=== PATIENT | female | born 1955 | race Caucasian/White ===

== ENCOUNTER 2018-03-16 15:23 | Emergency (ER) | payer MEDICARE ==
[2018-03-16 15:55] LABS: Bilirubin Negative (Negative); Blood, Urine Small (Negative); Clarity Slightly Cloudy (Clear); Glucose, Urine (Dipstick) Negative (Negative); Leukocyte Large (Negative); Nitrite Negative (Negative); Protein, Urine (Dipstick) Trace mg/dL (Neg-Trace); Specific Gravity, Urine 1.015 (1.005-1.030); Urobilinogen 0.2 mg/dL (0.2-1.0)
[2018-03-16] MEDS ORDERED: Ketorolac Tromethamine 30 MG/ML VIAL ONE (15:55)
[2018-03-16 15:57] LABS: Bacteria/HPF 1+ HPF (None Seen); Squamous Epithelial 0-3 HPF (0-3); WBC/HPF 21-50 HPF (0-3)
[2018-03-16] MEDS ORDERED: cefTRIAXone\\ROCEPHIN 2 GM VIAL ONE (15:59)
--- NOTE | 2018-03-16 16:31 | CT ---
CT ABDOMEN AND PELVIS WITHOUT CONTRAST STONE PROTOCOL 03/16/18 HISTORY: Two days of lower abdominal pain. COMPARISON: CT from 2004. FINDINGS: Mild scarring in the lung bases. There is cholelithiasis without evidence of cholecystitis. Numerous phleboliths in the pelvis. Punctate calculus inferior pole left kidney. Punctate calculus within the left interpolar cortex. There are no dilated loops of large or small bowel. No free intraperitoneal gas or fluid. Mild submuc osal fatty infiltration of the ascending colon likely from prior multiple bouts of inflammation. Trac e free fluid within the pelvis. Mild levoscoliosis. Noncontrast evaluation of the spleen and liver are unremarkable as well as the pancreas. Adrenal glan ds are unremarkable. No retroperitoneal adenopathy. IMPRESSION: 1. Punctate calculus interpolar left kidney. No evidence of obstructive uropathy. No hydroureter onephrosis. 2. Mild submucosal fatty infiltration of the ascending colon likely from prior multiple bouts of colitis. 3. Cholelithiasis without cholecystitis. 4. Trace free fluid in the pelvis. POS: [facility]
[2018-03-16 16:43] LABS: #Basophils 0.2 thou/uL (0.0-0.2); #Eosinphils 0.1 thou/uL (0.0-0.7); #Lymphocytes 2.5 thou/uL (1.20-3.40); #Monocytes 1.6 thou/uL (0.11-0.59); #Neutrophils 10.9 thou/uL (1.40-6.50); %Basophils 1.3 % (0.0-1.0); %Eosinophils 0.7 % (0.0-10.0); %Lymphocytes 16.6 % (21.0-51.0); %Monocytes 10.4 % (0.0-10.0); %Neutrophils 71.1 % (42.0-75.0); Hemoglobin 13.8 g/dL (12.0-16.0); Mean Corpuscular HGB CONC 34.4 g/dL (32.0-36.0); Mean Corpuscular Hemoglobin 29.7 pg (27.0-31.0); Mean Corpuscular Volume 86.3 fL (78.0-98.0); Mean Platelet Volume 6.8 fL (7.4-10.4); Platelet Count 286 thou/uL (130-400); RBC Distribution Width 10.9 % (11.5-14.5); Red Blood Cell (RBC) Count 4.64 mill/uL (4.20-5.40); White Blood Cell (WBC) Count 15.3 thou/uL (4.8-10.8)
[2018-03-16 16:57] LABS: ALT (SGPT) 17 U/L (8-55); AST (SGOT) 12 U/L (5-34); Albumin 3.8 g/dL (3.4-4.8); Alkaline Phosphatase 66 U/L (40-150); Anion Gap 13 mmol/L (10-20); BUN (Urea Nitrogen) 18 mg/dL (9.8-20.1); Bilirubin, Total 0.3 mg/dL (0.2-1.2); Calc. Creatinine Clearance 0 mL/min (70-130); Calcium 9.5 mg/dL (7.8-10.44); Carbon Dioxide 27 mmol/L (23-31); Chloride 103 mmol/L (98-107); Estimated GFR-MDRD 56; Globulin 2.9 g/dL (2.4-3.5); Glucose 94 mg/dL (80-115); Lipase 46 U/L (8-78); Potassium 4.9 mmol/L (3.5-5.1); Protein, Total 6.7 g/dL (6.0-8.3); Sodium 138 mmol/L (136-145)
== END 2018-03-16 17:15 | disposition home or self-care (01) ==
LOC: SCSER 15:23
DX: N39.0 Urinary tract infection, site not specified (principal); J44.9 Chronic obstructive pulmonary disease, unspecified; K21.9 Gastro-esophageal reflux disease without esophagitis; E78.5 Hyperlipidemia, unspecified; F32.9 Major depressive disorder, single episode, unspecified; F25.9 Schizoaffective disorder, unspecified; F17.210 Nicotine dependence, cigarettes, uncomplicated; Z79.899 Other long term (current) drug therapy
CPT/HCPCS: 74176; 80053; 81003; 81015; 83690; 85025; 87077; 87086; 87186; 96372; J0696; J1885

== ENCOUNTER 2018-03-20 15:05 | Emergency (ER) | payer MEDICARE ==
[2018-03-20 15:43] LABS: #Basophils 0.1 thou/uL (0.0-0.2); #Eosinphils 0.1 thou/uL (0.0-0.7); #Lymphocytes 2.2 thou/uL (1.20-3.40); #Monocytes 0.7 thou/uL (0.11-0.59); #Neutrophils 4.5 thou/uL (1.40-6.50); %Basophils 1.1 % (0.0-1.0); %Eosinophils 1.1 % (0.0-10.0); %Monocytes 8.7 % (0.0-10.0); %Neutrophils 60.1 % (42.0-75.0); Hemoglobin 12.5 g/dL (12.0-16.0); Mean Corpuscular HGB CONC 34.4 g/dL (32.0-36.0); Mean Corpuscular Hemoglobin 29.2 pg (27.0-31.0); Mean Platelet Volume 6.6 fL (7.4-10.4); Platelet Count 234 thou/uL (130-400); RBC Distribution Width 10.6 % (11.5-14.5); Red Blood Cell (RBC) Count 4.26 mill/uL (4.20-5.40); White Blood Cell (WBC) Count 7.5 thou/uL (4.8-10.8)
[2018-03-20] MEDS ORDERED: Ondansetron HCl/PF 4 MG/2 ML Vial ONE (15:45)
[2018-03-20] MEDS ORDERED: Morphine 4 MG/ML VIAL ONE (15:45)
[2018-03-20 15:50] LABS: Bilirubin Negative (Negative); Blood, Urine Negative (Negative); Clarity Clear (Clear); Glucose, Urine (Dipstick) Negative (Negative); Leukocyte Negative (Negative); Nitrite Negative (Negative); Protein, Urine (Dipstick) Negative (Neg-Trace); Specific Gravity, Urine 1.015 (1.005-1.030); Urobilinogen 0.2 mg/dL (0.2-1.0); pH, Urine 7.5 (5.0-9.0)
[2018-03-20 15:57] LABS: ALT (SGPT) 35 U/L (8-55); AST (SGOT) 15 U/L (5-34); Albumin 3.5 g/dL (3.4-4.8); Alkaline Phosphatase 80 U/L (40-150); Anion Gap 14 mmol/L (10-20); BUN (Urea Nitrogen) 15 mg/dL (9.8-20.1); Bilirubin, Total 0.2 mg/dL (0.2-1.2); Calc. Creatinine Clearance 0 mL/min (70-130); Calcium 9.3 mg/dL (7.8-10.44); Carbon Dioxide 25 mmol/L (23-31); Chloride 103 mmol/L (98-107); Estimated GFR-MDRD 52; Globulin 2.9 g/dL (2.4-3.5); Glucose 130 mg/dL (80-115); Potassium 4.5 mmol/L (3.5-5.1); Protein, Total 6.4 g/dL (6.0-8.3); Sodium 137 mmol/L (136-145)
--- NOTE | 2018-03-20 18:20 | CT ---
CONTRAST ENHANCED CT IMAGES ABDOMEN AND PELVIS 03/20/18 HISTORY: Abdominal pain. Contrast enhanced CT images of the abdomen and pelvis obtained after administration of IV and oral co ntrast. The lung bases are unremarkable. There is no evidence of free intraperitoneal air. The liver and spleen are unremarkable. The gallbladder contains a moderate sized gallstone in the gal lbladder neck with diameter measuring approximately 9 mm. The pancreas is unremarkable. Adrenal glands unremarkable. The kidneys are unremarkable. No evidence of periaortic lymphadenopathy seen. No dilated loops of small bowel seen. The colon demonstrates no significant evidence of masses or obstruction. The urinary bladder demonstrates moderate degree of thickening concerning for cystitis. IMPRESSION: 1. Cholelithiasis. 2. Bladder wall thickening concerning for bladder mass or inflammatory process. POS: [facility]
== END 2018-03-20 18:56 | disposition home or self-care (01) ==
LOC: SCSER 15:05
DX: K80.20 Calculus of gallbladder without cholecystitis without obstruction (principal); J44.9 Chronic obstructive pulmonary disease, unspecified; K21.9 Gastro-esophageal reflux disease without esophagitis; E78.5 Hyperlipidemia, unspecified; F32.9 Major depressive disorder, single episode, unspecified; F25.9 Schizoaffective disorder, unspecified; F17.210 Nicotine dependence, cigarettes, uncomplicated; Z79.899 Other long term (current) drug therapy
CPT/HCPCS: 74177; 80053; 81003; 83605; 85025; 87040; 87086; 96361; 96374; J2270; J2405

== ENCOUNTER 2018-03-22 07:39 | Day surgery (SDC) | payer MEDICARE ==
[2018-03-21 15:45] VITALS: BMI 32.3
[2018-03-22] MEDS ORDERED: Ketorolac Tromethamine 30 MG/ML VIAL ONE ×2 (08:32→12:16)
[2018-03-22] MEDS ORDERED: Midazolam HCl 2 mg/2 ml Vial ONE (08:32)
[2018-03-22] MEDS ORDERED: Bupivacaine/Epinephrine 0.25% 30 ML VIAL ONE (08:55)
[2018-03-22] MEDS ORDERED: Fentanyl 100 MCG/2 ML VIAL ONE ×2 (08:55→10:41)
[2018-03-22] MEDS ORDERED: Famotidine/PF 20 mg/2ml Vial ONE (08:59)
[2018-03-22] MEDS ORDERED: CEFAZOLIN/Water 2 GM/20 ML SYRINGE ONE (09:08)
[2018-03-22] MEDS ORDERED: SUGAMMADEX SODIUM 200 MG/2 ML VIAL ONE (10:22)
[2018-03-22] MEDS ORDERED: Meperidine HCl/PF 25 MG/ML VIAL ONE (10:27)
[2018-03-22] MEDS ORDERED: HYDROcodone/Acetaminophen 5/325 mg Tablet ONE (11:51)
[2018-03-22] MEDS ORDERED: Promethazine HCl 25 MG/ML VIAL ONE (12:14)
[2018-03-22] MEDS ORDERED: Ondansetron HCl/PF 4 MG/2 ML Vial ONE (12:16)
[2018-03-22] MEDS ORDERED: Glycopyrrolate 0.2 MG/ML 5 ML SYRINGE ONE (12:16)
[2018-03-22] MEDS ORDERED: PROPOFOL 200 MG/20 ML VIAL ONE (12:16)
[2018-03-22] MEDS ORDERED: Esmolol 100 MG/10 ML VIAL ONE (12:16)
[2018-03-22] MEDS ORDERED: Lidocaine 1% PF 5 ML VIAL ONE (12:16)
[2018-03-22] MEDS ORDERED: Metoprolol Tartrate 5 MG/5 ML VIAL ONE (12:16)
--- NOTE | 2018-03-24 17:49 | EKG ---
Test Reason : PREOP Blood Pressure : / mmHG Vent. Rate : 065 BPM Atrial Rate : 065 BPM P-R Int : 148 ms QRS Dur : 084 ms QT Int : 414 ms P-R-T Axes : 028 056 073 degrees QTc Int : 430 ms Normal sinus rhythm Normal ECG When compared with ECG of 09-AUG-2016 16:02, No significant change was found Confirmed by GILSON LYNCH (2) on 03/24/2018 5:48:31 PM Referred By: KESHAV Confirmed By:GILSON LYNCH
--- NOTE | 2018-03-29 20:54 | PDOC.OP ---
Operative Note - Operative Note Operative Note: PROCEDURE: Laparoscopic cholecystectomy SURGEON: Cong Stone M.D. DATE OF PROCEDURE: PREOPERATIVE DIAGNOSIS: Cholelithiasis and cholecystitis POSTOPERATIVE DIAGNOSIS: Cholelithiasis and cholecystitis HISTORY: Patient with right flank pain and cholelithiasis on ultrasound. Recommendation was made to proceed with laparoscopic cholecystectomy for symptomatic relief. FINDINGS: White walled gallbladder with stones. PROCEDURE IN DETAIL: After informed consent was obtained and appropriate preoperative antibiotics were administered, the patient was taken to the operating room and placed in the supine position and general endotracheal anesthesia was administered. The stomach was decompressed with an OG tube and the abdomen was prepped and draped in standard sterile fashion. Local anesthesia was infused to the skin and subcutaneous tissues at the umbilical level. A transverse skin incision was made. The fascia was elevated and a Veress needle was placed into the abdominal cavity without difficulty. Opening pressure was less than 5 and carbon dioxide gas easily insufflated to an intra- abdominal pressure of 15, which the patient tolerated well. The Veress needle was withdrawn and a [place] port advanced under direct vision. The abdominal cavity was carefully examined. There was no evidence of Veress needle or of trocar injury. Local anesthesia was infused to the skin and subcutaneous tissues at the epigastric, right upper quadrant, and right lateral abdominal sites and trocars were placed under direct vision of the laparoscope. The fundus of the gallbladder was grasped and retracted superiorly. The infundibulum was grasped and retracted laterally. The serosa was stripped inferiorly at the level of the neck of the gallbladder exposing the cystic duct and artery which were traced clearly to their insertion in the gallbladder. Critical view of safety was obtained and the cystic duct and artery were clipped and divided between clips. The gallbladder was then dissected free of the gallbladder bed using hook electrocautery. Prior to complete removal of the gallbladder from the gallbladder bed, the area of the cystic duct and artery stumps was examined. The clips were in good position completely across these structures and there was no bleeding and no leakage of bile. The gallbladder was then placed into an EndoCatch bag and drawn out through the epigastric incision. The epigastric trocar was replaced and the operative site easily irrigated to clear. There was no significant bleeding or spillage of bile. The epigastric trocar was removed and the fascia closed under direct laparoscopic vision with a 0 Vicryl suture on a GraNee needle in a figure-of- eight manner with excellent technical result. The right upper quadrant and right lateral abdominal trocars were removed and hemostasis verified. Carbon dioxide gas was allowed to desufflate through the umbilical trocar which was then removed. The skin incisions were closed with 4-0 subcuticular Monocryl sutures and Dermabond dressings were placed. The patient was extubated and taken to the recovery room in good condition. There were no complications. ESTIMATED BLOOD LOSS: Minimal. SPECIMEN : Gallbladder and contents.
== END 2018-03-22 12:48 | disposition home or self-care (01) ==
LOC: SDC 07:39
PROVIDERS: ATTEND Surgery
PROC: 0FT44ZZ Resection of Gallbladder, Percutaneous Endoscopic Approach (ICD-10-PCS; principal; 2018-03-22)
DX: K80.12 Calculus of gallbladder with acute and chronic cholecystitis without obstruction (principal); J44.9 Chronic obstructive pulmonary disease, unspecified; G43.909 Migraine, unspecified, not intractable, without status migrainosus; F31.9 Bipolar disorder, unspecified; F25.9 Schizoaffective disorder, unspecified; F17.210 Nicotine dependence, cigarettes, uncomplicated; Z79.899 Other long term (current) drug therapy
CPT/HCPCS: 88304; 93005; 93010; 96374; 96375; J0131; J1885; J2001; J2175; J2250; J2405; J2550; J2704; J3010; S0028

== ENCOUNTER 2018-05-15 14:33 | Emergency (ER) | payer MEDICARE ==
--- NOTE | 2018-05-15 15:33 | RAD ---
PELVIS ONE VIEW: HISTORY: Pain in right hip. COMPARISON: None. FINDINGS: No fracture. No malalignment. Phleboliths in the pelvis. Surgical clips in the right lower quadran t of the abdomen. IMPRESSION: No acute osseous abnormality. POS: [facility]
--- NOTE | 2018-05-15 15:34 | RAD ---
RIGHT HIP TWO VIEWS: INDICATIONS: Pain. Fall. COMPARISON: 03/29/2015 FINDINGS: No fracture or dislocation. No significant arthropathy of the right hip. There are metallic clips o verlying the right lower abdomen. Pelvic phleboliths are seen. IMPRESSION: No acute fracture of the right hip. POS: [facility]
== END 2018-05-15 15:24 | disposition home or self-care (01) ==
LOC: SCSER 14:33
DX: S70.01XA Contusion of right hip, initial encounter (principal); J44.9 Chronic obstructive pulmonary disease, unspecified; K21.9 Gastro-esophageal reflux disease without esophagitis; F32.9 Major depressive disorder, single episode, unspecified; E78.5 Hyperlipidemia, unspecified; W18.30XA Fall on same level, unspecified, initial encounter
CPT/HCPCS: 72170

== ENCOUNTER 2018-06-27 05:45 | Emergency (ER) | payer MEDICARE ==
[2018-06-27 06:38] LABS: #Eosinphils 0.1 thou/uL (0.0-0.7); #Lymphocytes 2.6 thou/uL (1.20-3.40); #Neutrophils 5.2 thou/uL (1.40-6.50); %Basophils 0.4 % (0.0-1.0); %Eosinophils 0.9 % (0.0-10.0); %Lymphocytes 28.9 % (21.0-51.0); %Monocytes 10.8 % (0.0-10.0); %Neutrophils 59.1 % (42.0-75.0); Hemoglobin 12.3 g/dL (12.0-16.0); Mean Corpuscular HGB CONC 33.3 g/dL (32.0-36.0); Mean Corpuscular Hemoglobin 29.3 pg (27.0-31.0); Mean Corpuscular Volume 87.9 fL (78.0-98.0); Mean Platelet Volume 8.1 fL (7.4-10.4); Platelet Count 188 thou/uL (130-400); RBC Distribution Width 11.2 % (11.5-14.5); Red Blood Cell (RBC) Count 4.18 mill/uL (4.20-5.40); White Blood Cell (WBC) Count 8.8 thou/uL (4.8-10.8)
[2018-06-27 06:51] LABS: ALT (SGPT) 9 U/L (8-55); AST (SGOT) 13 U/L (5-34); Albumin 3.8 g/dL (3.4-4.8); Alkaline Phosphatase 42 U/L (40-150); Anion Gap 16 mmol/L (10-20); BUN (Urea Nitrogen) 13 mg/dL (9.8-20.1); Bilirubin, Total 0.2 mg/dL (0.2-1.2); Calc. Creatinine Clearance 0 mL/min (70-130); Calcium 9.1 mg/dL (7.8-10.44); Carbon Dioxide 20 mmol/L (23-31); Chloride 104 mmol/L (98-107); Estimated GFR-MDRD 57; Globulin 2.8 g/dL (2.4-3.5); Glucose 99 mg/dL (80-115); Potassium 4.3 mmol/L (3.5-5.1); Protein, Total 6.6 g/dL (6.0-8.3); Sodium 136 mmol/L (136-145)
[2018-06-27 08:04] LABS: Bilirubin Negative (Negative); Blood, Urine Negative (Negative); Clarity CLEAR (Clear); Glucose, Urine (Dipstick) Negative (Negative); Leukocyte Small (Negative); Nitrite Negative (Negative); Protein, Urine (Dipstick) Negative (Neg-Trace); Specific Gravity, Urine 1.018 (1.002-1.036); Urobilinogen 0.2 mg/dL (0.2-1.0)
[2018-06-27 08:07] LABS: Bacteria/HPF 4+ HPF (None Seen); Hyaline Casts/LPF 0-3 HYALINE CAST LPF (0-3 Hyaline); Pathc Cast-AUWi Flag 0.43 (0-2.49); RBC/HPF 0-3 HPF (0-3)
[2018-06-27 08:16] LABS: Yeast-All Forms 1+ HPF (None Seen)
--- NOTE | 2018-06-27 08:49 | RAD ---
CHEST 2 VIEWS: History Fall. Dyspnea. COMPARISON: 08/02/2016. FINDINGS: Cardiac silhouette and pulmonary vasculature are unremarkable. Mediastinum is midline. No confluent airspace consolidation, or pleural fluid are apparent. Postoperative changes cervical spine. Corti elisabeth remodeling of bilateral ribs is likely related to old fractures. IMPRESSION: No active cardiopulmonary abnormalities are demonstrated. POS: [facility]
== END 2018-06-27 12:23 ==
LOC: ERS 05:45
DX: R29.6 Repeated falls (principal); Z74.1 Need for assistance with personal care; J44.9 Chronic obstructive pulmonary disease, unspecified; K21.9 Gastro-esophageal reflux disease without esophagitis; E78.5 Hyperlipidemia, unspecified; F25.9 Schizoaffective disorder, unspecified; F31.9 Bipolar disorder, unspecified; F17.210 Nicotine dependence, cigarettes, uncomplicated
CPT/HCPCS: 36415; 71046; 80053; 81003; 81015; 85025; 87077; 87086; 87186

== ENCOUNTER 2018-07-06 15:17 | Emergency (ER) | payer MEDICARE | END 2018-07-06 15:33 | disposition left against medical advice (07) | LOC: ERS 15:17 | DX: Z53.21 Procedure and treatment not carried out due to patient leaving prior to being seen by health care provider (principal) ==

== ENCOUNTER 2018-07-06 15:53 | Inpatient (IN) | payer MEDICARE ==
[2018-07-06 16:39] LABS: Bilirubin Negative (Negative); Blood, Urine Negative (Negative); Clarity Cloudy (Clear); Glucose, Urine (Dipstick) Negative (Negative); Leukocyte Trace (Negative); Nitrite Negative (Negative); Protein, Urine (Dipstick) 30 mg/dL (Neg-Trace)
--- NOTE | 2018-07-06 16:39 | RAD ---
PELVIS ONE VIEW 07/06/18 HISTORY: Trauma. Fall. COMPARISON: Exam from 05/15/18. FINDINGS: No fracture. No malalignment. Phleboliths in the pelvis. Obturator rings are intact. Femoral heads/necks are intact. IMPRESSION: No acute abnormality. POS: [facility]
--- NOTE | 2018-07-06 16:41 | RAD ---
RIGHT HIP TWO VIEW: 07/06/18 HISTORY: Fall. Trauma. COMPARISON: Radiograph 05/15/18. FINDINGS: Right obturator ring is intact. Right femoral head and neck are intact. IMPRESSION: No acute fracture. POS: [facility]
[2018-07-06 16:43] LABS: pH, Urine Greater/Equal 9.0 (5.0-9.0)
[2018-07-06 16:44] LABS: Bacteria/HPF 3+ HPF (None Seen); RBC/HPF 0-3 HPF (0-3); WBC/HPF 21-50 HPF (0-3)
[2018-07-06] MEDS ORDERED: Lidocaine 1% PF 5 ML VIAL ONE (16:54)
[2018-07-06] MEDS ORDERED: Nitrofurantoin Macrocrystal 50 MG CAP ONE (16:54)
[2018-07-06] MEDS ORDERED: Acetaminophen 500 MG TAB ONE (16:54)
[2018-07-06] MEDS ORDERED: cefTRIAXone\\ROCEPHIN 1 GM VIAL ONE (16:54)
[2018-07-06 17:26] LABS: #Basophils 0.1 thou/uL (0.0-0.2); #Eosinphils 0.1 thou/uL (0.0-0.7); #Lymphocytes 2.3 thou/uL (1.20-3.40); #Monocytes 0.9 thou/uL (0.11-0.59); %Basophils 1.1 % (0.0-1.0); %Eosinophils 0.6 % (0.0-10.0); %Lymphocytes 28.1 % (21.0-51.0); %Monocytes 10.2 % (0.0-10.0); Mean Corpuscular HGB CONC 32.4 g/dL (32.0-36.0); Mean Corpuscular Volume 86.3 fL (78.0-98.0); Mean Platelet Volume 6.6 fL (7.4-10.4); Platelet Count 320 thou/uL (130-400); RBC Distribution Width 10.5 % (11.5-14.5); Red Blood Cell (RBC) Count 4.63 mill/uL (4.20-5.40); White Blood Cell (WBC) Count 8.4 thou/uL (4.8-10.8)
[2018-07-06 17:45] LABS: ALT (SGPT) 23 U/L (8-55); AST (SGOT) 19 U/L (5-34); Albumin 3.9 g/dL (3.4-4.8); Alkaline Phosphatase 58 U/L (40-150); Anion Gap 14 mmol/L (10-20); BUN (Urea Nitrogen) 15 mg/dL (9.8-20.1); Bilirubin, Total 0.3 mg/dL (0.2-1.2); Calc. Creatinine Clearance 0 mL/min (70-130); Calcium 9.5 mg/dL (7.8-10.44); Carbon Dioxide 27 mmol/L (23-31); Chloride 100 mmol/L (98-107); Estimated GFR-MDRD 63; Globulin 2.7 g/dL (2.4-3.5); Glucose 133 mg/dL (80-115); Potassium 4.1 mmol/L (3.5-5.1); Protein, Total 6.6 g/dL (6.0-8.3); Sodium 137 mmol/L (136-145)
[2018-07-06] MEDS ORDERED: Acetaminophen 325 MG TAB PO PRN (19:12)
[2018-07-06] MEDS ORDERED: Ondansetron ODT 4 MG TAB SL PRN (19:12)
[2018-07-06] MEDS ORDERED: Ondansetron PF 4 MG/2 ML Vial IVP PRN (19:12)
[2018-07-06 22:05] VITALS: BMI 32.9
[2018-07-07] MEDS ORDERED: hydrALAZINE 20 MG/ML VIAL SLOW IVP PRN (08:26)
[2018-07-07] MEDS ORDERED: Sodium Chloride 0.9% 1,000 ML IV SCH (08:30)
[2018-07-07] MEDS ORDERED: Non-Formulary Item 1 EACH (Hydroxyzine Hcl [Hydroxyzine Hcl] 50 MG) PO SCH (09:00)
[2018-07-07] MEDS ORDERED: Non-Formulary Item 1 EACH (Buspirone Hcl [Buspirone Hcl] 30 MG) PO SCH (09:00)
[2018-07-07] MEDS: busPIRone HCl 10 MG TAB PO SCH ×3 (10:57→20:02)
[2018-07-07] MEDS: hydrOXYzine 25 MG TAB PO SCH ×2 (10:58→20:03)
[2018-07-07] MEDS: Famotidine 20 MG TAB PO SCH ×2 (10:58→20:03)
[2018-07-07] MEDS: Enoxaparin Sodium 40 MG/0.4 ML SYRINGE SC SCH (10:58)
[2018-07-07] MEDS ORDERED: Benzonatate 100 MG CAP PO PRN (15:08)
[2018-07-07] MEDS ORDERED: Bisacodyl 5 MG TAB PO PRN (15:08)
[2018-07-07] MEDS ORDERED: Acetaminophen 650 MG Suppository PR PRN (15:08)
[2018-07-07] MEDS ORDERED: Nitroglycerin 0.4 MG TAB (25 Tab Bottle) SL PRN (15:08)
[2018-07-07] MEDS ORDERED: Senokot S 8.6-50 MG TAB PO PRN (15:08)
[2018-07-07] MEDS ORDERED: Diabetic Tussin 200 MG/10 ML UDCUP PO PRN (15:08)
--- NOTE | 2018-07-07 15:42 | HP ---
PRIMARY CARE PHYSICIAN: According to the patient, Dr. Díaz. CHIEF COMPLAINT: Multiple falls recently. HISTORY OF PRESENTING ILLNESS: Ms. Manning is a 62-year-old female with known history of dyslipidemia, COPD, bipolar, schizophrenic illness requiring psychiatric inpatient rehabilitation, as well as tobacco abuse, who presented to the emergency room with above-mentioned complaint. The patient is somewhat of a poor historian, and most of the information is acquire from the emergency room records. Ms. Manning reports that she lives at home, and her brother and mother live close by. She fell yesterday because she was not using a walker, which she is supposed to use. She presented to the ER for evaluation after the fall. Upon presentation, she was febrile with a temperature 101.7, otherwise hemodynamically stable. A general evaluation including multiple imaging studies revealed that she has no acute fractures. She was found to have UTI on further evaluation and received Macrodantin and IV Rocephin in the ER and is now being admitted to medical floor for treatment for the urinary tract infection and possible rehab placement. At the time of my evaluation, she feels a little bit weak, but does not have any new complaints. PAST MEDICAL HISTORY: 1. History of bipolar schizophrenic disorder. 2. Chronic obstructive pulmonary disease. 3. Obstructive sleep apnea. 4. Hypothyroidism. 5. GERD. 6. Obesity. PAST SURGICAL HISTORY: 1. Hysterectomy. 2. section. 3. Appendectomy and right salpingo-oophorectomy. 4. Bilateral carpal tunnel release. 5. Tonsillectomy. 6. Adenoidectomy. 7. Breast augmentation. ALLERGIES: NO KNOWN MEDICATION ALLERGIES. SOCIAL HISTORY: She smokes one pack of cigarettes per day since she was 16 years of age. She lives alone, but her family lives close by. CURRENT HOME MEDICATIONS: 1. Depakote 1500 mg at bedtime. 2. Atorvastatin 20 mg daily. 3. Buspirone 30 mg t.i.d. 4. Hydroxyzine 50 mg b.i.d. 5. Trazodone 300 mg at bedtime. FAMILY HISTORY: No significant family history of premature coronary artery disease or stroke. REVIEW OF SYSTEMS: A 12-point review of systems is done. It is negative except for those mentioned in history and physical. CODE STATUS: Full code, discussed with the patient. LABORATORY DATA: CBC is unremarkable. Serum chemistry is unremarkable. Urinalysis showed +3 bacteria, but with multiple squamous epithelial cells. X-ray of the pelvis and hip by my evaluation is negative for any fractures. PHYSICAL EXAMINATION: VITAL SIGNS: Most recent vital signs; temperature 98.1, pulse of 64, respirations 16, saturating 95% on room air, and blood pressure 106/70. GENERAL: No acute distress. Awake, alert, and oriented x3. She appears somewhat disheveled. HEENT: Mucous membrane is moist and pink. No oropharyngeal exudate or erythema. Head is normocephalic and atraumatic. Pupils equal and reactive to light and accommodation. Extraocular movement intact. NECK: Supple without any lymphadenopathy, JVD, or bruit. CHEST: Clear to auscultation without any wheezing, rales, or rhonchi. HEART: Rate and rhythm are regular without any murmurs, rubs, or gallops. ABDOMEN: Soft, nontender, nondistended with positive bowel sounds. EXTREMITIES: Free of any cyanosis, clubbing, or edema. NEUROLOGICAL: Nonfocal. SKIN: Free of any rashes or bruises. Feels warm and dry to touch. PSYCHIATRIC: Normal affect. IMPRESSION AND PLAN: 1. Urinary tract infection. We will send the urine for culture and continue empiric IV antibiotics. It seems like the patient had a urine culture done on 06/28/2018, which was positive for Escherichia coli, which was rather pansensitive. New urine culture results will be followed. She will be treated with gentle IV fluids. There is no evidence of sepsis. 2. Fall. The patient is chronically debilitated and will benefit from rehab evaluation. We will have OT/PT evaluate her and possibly have her placed in a skilled rehab or inpatient rehab facility based on their evaluation. 3. Bipolar illness and schizophrenic disorder as per the history. Restart her home medications. 4. History of chronic obstructive pulmonary disease versus asthma. Currently stable. Not requiring any oxygen supplementation. 5. Hypothyroidism. It does not seem like the patient is on any medication at this time. We will check a TSH again. 6. Code status. Full code. 7. Deep venous thrombosis and gastrointestinal prophylaxis. DISPOSITION: Ms. Manning is currently being admitted to the hospital after fall requiring rehab evaluation and treatment of her UTI. Estimated length of stay at this time is at least 2 to 3 midnights. Further management will depend upon her clinical course. Job ID: [id number]
[2018-07-07] MEDS: cefTRIAXone\\ROCEPHIN 1 GM in Sodium Chloride 0.9% 100 ML IVPB SCH (16:14)
[2018-07-07] MEDS: Atorvastatin Calcium 20 MG TAB PO SCH (20:02)
[2018-07-07] MEDS: traZODone HCl 150 MG TAB PO SCH (20:03)
[2018-07-08] MEDS: busPIRone HCl 10 MG TAB PO SCH ×3 (08:27→20:09)
[2018-07-08] MEDS: Famotidine 20 MG TAB PO SCH ×2 (08:28→20:10)
[2018-07-08] MEDS: hydrOXYzine 25 MG TAB PO SCH ×2 (08:28→20:10)
[2018-07-08] MEDS: Enoxaparin Sodium 40 MG/0.4 ML SYRINGE SC SCH (08:28)
--- NOTE | 2018-07-08 08:58 | PDOC.PN ---
- Subjective Encounter Start Date: 07/08/18 Encounter Start Time: 08:57 -: old records requested/rev Pt seen and examined, chart reviewed in its entirety, this is my first visit with this patient. followup for UTI, falls, bipolar D/O. recently dischaged form rehab, back to ER for fall same day No F/C, no N/V/d/C, UCx neg to date. sharan abx all systems reviewed and neg x as per HPI - Objective MAR Reviewed: Yes Vital Signs & Weight: Vital Signs (12 hours) Temp Pulse Resp BP Pulse Ox 07/08/18 07:33 98.4 F 68 20 143/83 H 95 Weight Weight 204 lb I&O: 07/07/18 07/08/18 07/09/18 06:59 06:59 06:59 Intake Total 300 1300 Balance 300 1300 Result Diagrams: 07/06/18 17:23 07/06/18 17:23 Radiology Reviewed by me: Yes EKG Reviewed by me: Yes Phys Exam - Physical Examination Constitutional: NAD HEENT: PERRLA, moist MMs, sclera anicteric, oral pharynx no lesions Neck: no nodes, no JVD, supple, full ROM Respiratory: no wheezing, no rales, no rhonchi, clear to auscultation bilateral Cardiovascular: RRR, no significant murmur, no rub Gastrointestinal: soft, non-tender, no distention, positive bowel sounds Musculoskeletal: no edema, pulses present Neurological: non-focal, normal sensation, moves all 4 limbs Lymphatic: no nodes Psychiatric: A&O x 3 Skin: no rash, normal turgor, cap refill <2 seconds Dx/Plan (1) UTI (urinary tract infection) Status: Acute Qualifiers: Urinary tract infection type: acute cystitis Hematuria presence: without hematuria Qualified Code(s): N30.00 - Acute cystitis without hematuria Comment: Cx neg to date. ccm with abx, follow up culture. plan to rx x 5 days. denies symptoms (2) Recurrent falls Code(s): R29.6 - REPEATED FALLS Status: Chronic (3) Bipolar 1 disorder Code(s): F31.9 - BIPOLAR DISORDER, UNSPECIFIED Status: Chronic (4) COPD (chronic obstructive pulmonary disease) Status: Chronic Qualifiers: COPD type: unspecified COPD Qualified Code(s): J44.9 - Chronic obstructive pulmonary disease, unspecified Comment: no acute exacerbation - Plan cont current plan of care, continue antibiotics, PT/OT, oncology social work, out of bed/ambulate * .
[2018-07-08] MEDS: cefTRIAXone\\ROCEPHIN 1 GM in Sodium Chloride 0.9% 100 ML IVPB SCH (16:22)
[2018-07-08] MEDS: traZODone HCl 150 MG TAB PO SCH (20:09)
[2018-07-08] MEDS: Atorvastatin Calcium 20 MG TAB PO SCH (20:10)
[2018-07-09] MEDS: hydrOXYzine 25 MG TAB PO SCH (07:54)
[2018-07-09] MEDS: Famotidine 20 MG TAB PO SCH (07:54)
[2018-07-09] MEDS: busPIRone HCl 10 MG TAB PO SCH ×2 (07:54→16:19)
[2018-07-09] MEDS: Enoxaparin Sodium 40 MG/0.4 ML SYRINGE SC SCH (07:54)
--- NOTE | 2018-07-09 08:57 | PDOC.PN ---
- Subjective Encounter Start Date: 07/09/18 Encounter Start Time: 08:53 follow up for UTI, falls, bipolar D/O No F/C, no N/V/d/C, UCx neg to date. sharan abx all systems reviewed and neg x as per HPI - Objective MAR Reviewed: Yes Vital Signs & Weight: Vital Signs (12 hours) Temp Pulse Resp BP Pulse Ox 07/09/18 07:04 98.5 F 58 L 17 119/77 96 Weight Weight 204 lb I&O: 07/08/18 07/09/18 07/10/18 06:59 06:59 06:59 Intake Total 1300 1720 Balance 1300 1720 Result Diagrams: 07/06/18 17:23 07/06/18 17:23 Phys Exam - Physical Examination Constitutional: NAD HEENT: PERRLA, moist MMs, sclera anicteric, oral pharynx no lesions Neck: no nodes, no JVD, supple, full ROM Respiratory: no wheezing, no rales, no rhonchi, clear to auscultation bilateral Cardiovascular: RRR, no significant murmur, no rub Gastrointestinal: soft, non-tender, no distention, positive bowel sounds Musculoskeletal: no edema, pulses present Neurological: non-focal, normal sensation, moves all 4 limbs Lymphatic: no nodes Psychiatric: A&O x 3 Skin: no rash, normal turgor, cap refill <2 seconds Dx/Plan (1) UTI (urinary tract infection) Status: Acute Qualifiers: Urinary tract infection type: acute cystitis Hematuria presence: without hematuria Qualified Code(s): N30.00 - Acute cystitis without hematuria Comment: Cx neg to date. ccm with abx, follow up culture. plan to rx x 5 days. denies symptoms (2) Recurrent falls Code(s): R29.6 - REPEATED FALLS Status: Chronic (3) Bipolar 1 disorder Code(s): F31.9 - BIPOLAR DISORDER, UNSPECIFIED Status: Chronic (4) COPD (chronic obstructive pulmonary disease) Status: Chronic Qualifiers: COPD type: unspecified COPD Qualified Code(s): J44.9 - Chronic obstructive pulmonary disease, unspecified Comment: no acute exacerbation - Plan * .
--- NOTE | 2018-07-09 13:52 | DIS ---
DATE OF ADMISSION: 07/06/2018 DATE OF DISCHARGE: 07/10/2018 PRIMARY CARE PHYSICIAN: Dr. Lexus Nelson. DISCHARGE DIAGNOSES: 1. Physical deconditioning. 2. Urinary tract infection, present on admission. 3. Fall from same level. 4. Bipolar disorder. 5. Hypertension. 6. Chronic obstructive pulmonary disease without acute exacerbation. CONSULTATIONS: None. PROCEDURES: None. HISTORY AND PHYSICAL: Ms. Manning is a 62-year-old female, recently discharged here to rehab after multiple falls. She was released from rehab on 07/06 and got home and fell again. She was brought back to the ER for evaluation. We were called for admission. The patient was accepted by the box turner. HOSPITAL COURSE: The patient was seen and examined on the morning of 07/07, placed in inpatient status. She was felt to have a UTI and was started on antibiotics. PT/OT was consulted and saw her on 07/08 and felt that her current progress was undetermined. She was watched again overnight, 07/08 to 07/09, at which time, she refused to go into rehab, wanted to go home with [facility]. She was able to ambulate with assistance and was otherwise stable for discharge. PHYSICAL EXAMINATION: The patient was seen and examined on the day of discharge. Discharge plan and disposition discussed with the patient [id number] at the bedside. DISCHARGE MEDICATIONS: Please see medicine reconciliation. DISCHARGE ACTIVITY: As tolerated. DISCHARGE CONDITION: Stable. DISPOSITION: She will be discharged home via private vehicle with [facility] for physical therapy, occupational therapy. FOLLOWUP APPOINTMENT: Primary care physician in 1 week. Job ID: [id number]
[2018-07-09 16:40] VITALS: BP 133/97; TEMP 98.7
== END 2018-07-09 16:33 | disposition home health service (06) | DRG 690 ==
LOC: SCSER 15:53 → T4-B 18:37
PROVIDERS: ADMIT Family Medicine; ATTEND Family Medicine
DX: N30.00 Acute cystitis without hematuria (principal); E78.5 Hyperlipidemia, unspecified; J44.9 Chronic obstructive pulmonary disease, unspecified; F31.9 Bipolar disorder, unspecified; F20.9 Schizophrenia, unspecified; G47.33 Obstructive sleep apnea (adult) (pediatric); R53.81 Other malaise; E03.9 Hypothyroidism, unspecified; K21.9 Gastro-esophageal reflux disease without esophagitis; E66.9 Obesity, unspecified; F17.210 Nicotine dependence, cigarettes, uncomplicated; R29.6 Repeated falls; Z68.32 Body mass index [BMI] 32.0-32.9, adult; Z90.710 Acquired absence of both cervix and uterus; Z90.49 Acquired absence of other specified parts of digestive tract; Z90.89 Acquired absence of other organs; Z98.890 Other specified postprocedural states
CPT/HCPCS: 36415; 72170; 80053; 81003; 81015; 84443; 85025; 87040; 87086; 96372; J0696; J1650; J2001; J7050

== ENCOUNTER 2019-10-22 11:22 | Emergency (ER) | payer MEDICARE, OTHER ==
[2019-10-22 11:57] LABS: #Basophils 0.1 thou/uL (0.0-0.2); #Eosinphils 0.2 thou/uL (0.0-0.7); #Lymphocytes 1.7 thou/uL (1.20-3.40); #Monocytes 0.6 thou/uL (0.11-0.59); #Neutrophils 4.8 thou/uL (1.40-6.50); %Eosinophils 2.9 % (0.0-10.0); %Lymphocytes 22.7 % (21.0-51.0); %Monocytes 7.6 % (0.0-10.0); %Neutrophils 65.8 % (42.0-75.0); Hemoglobin 14.3 g/dL (12.0-16.0); Mean Corpuscular HGB CONC 33.6 g/dL (32.0-36.0); Mean Corpuscular Volume 89.4 fL (78.0-98.0); Mean Platelet Volume 6.4 fL (7.4-10.4); Platelet Count 340 thou/uL (130-400); RBC Distribution Width 11.7 % (11.5-14.5); Red Blood Cell (RBC) Count 4.75 mill/uL (4.20-5.40); White Blood Cell (WBC) Count 7.3 thou/uL (4.8-10.8)
[2019-10-22 12:21] LABS: ALT (SGPT) 44 U/L (8-55); AST (SGOT) 37 U/L (5-34); Albumin 4.4 g/dL (3.4-4.8); Alkaline Phosphatase 94 U/L (40-110); Anion Gap 12 mmol/L (10-20); BUN (Urea Nitrogen) 18 mg/dL (9.8-20.1); Bilirubin, Total 0.4 mg/dL (0.2-1.2); CK (CPK) 82 U/L (29-168); Calc. Creatinine Clearance 0 mL/min (70-130); Calcium 9.2 mg/dL (7.8-10.44); Carbon Dioxide 26 mmol/L (23-31); Chloride 106 mmol/L (98-107); Estimated GFR-MDRD 62; Globulin 2.4 g/dL (2.4-3.5); Glucose 99 mg/dL (80-115); Lipase 23 U/L (8-78); Potassium 4.3 mmol/L (3.5-5.1); Protein, Total 6.8 g/dL (6.0-8.3); Sodium 140 mmol/L (136-145)
--- NOTE | 2019-10-22 12:42 | RAD ---
EXAM: CHEST ONE VIEW HISTORY: Cough. Evaluate for COVID 19. COMPARISON: 08/02/2016 FINDINGS: The cardiac silhouette and pulmonary vasculature is within normal limits. Lungs remain clear. Bilater al breast prostheses are again seen. Remote bilateral rib fractures are again seen. Surgical clips overlie the right upper quadrant. No interval change from prior exam. IMPRESSION: No acute cardiopulmonary process. No pulmonary opacities are visualized. Please note that chest radio graphs exhibit low sensitivity for subtle groundglass opacities that can be seen with viral infections.
--- NOTE | 2019-10-24 15:33 | EKG ---
Test Reason : Blood Pressure : / mmHG Vent. Rate : 069 BPM Atrial Rate : 069 BPM P-R Int : 168 ms QRS Dur : 082 ms QT Int : 400 ms P-R-T Axes : 015 060 068 degrees QTc Int : 428 ms Sinus rhythm with Premature supraventricular complexes with occasional Premature ventricular complexe s Otherwise normal ECG Confirmed by TL RUSH, NESOTR ([id number]), newspaper editor CHEYENNE GAMING ([id number]) on 10/24/2019 3:33:18 PM Referred By: Confirmed By:NESTOR BOOTHE MD
== END 2019-10-22 13:39 | disposition home or self-care (01) ==
LOC: ERS 11:22
DX: J20.9 Acute bronchitis, unspecified (principal); E78.5 Hyperlipidemia, unspecified; E78.00 Pure hypercholesterolemia, unspecified; J44.9 Chronic obstructive pulmonary disease, unspecified; F31.9 Bipolar disorder, unspecified; F25.9 Schizoaffective disorder, unspecified; F17.210 Nicotine dependence, cigarettes, uncomplicated; Z03.818 Encounter for observation for suspected exposure to other biological agents ruled out; Z79.899 Other long term (current) drug therapy
CPT/HCPCS: 71045; 80053; 82550; 83690; 83880; 84484; 85025; 85379; 93005; 96360; 99284; U0002; 87635

== ENCOUNTER 2020-07-27 09:38 | Outpatient (CLI) | payer MEDICARE | END 2020-07-27 09:39 | disposition home or self-care (01) | LOC: CTENTCT 09:38 | PROVIDERS: ATTEND Otolaryngology Plastic Surgery within the Head & Neck | DX: J32.9 Chronic sinusitis, unspecified (principal) | CPT/HCPCS: 70486 ==

== ENCOUNTER 2020-08-24 10:45 | Outpatient (CLI) | payer MEDICARE ==
--- NOTE | 2020-08-24 11:33 | CT ---
EXAM: CT chest without contrast per low-dose cancer screening protocol HISTORY: History of smoking and nicotine dependence. Greater than 50 pack year smoking history COMPARISON: None TECHNIQUE: Multiple contiguous axial images were obtained in a CT of the chest without contrast per l ow-dose cancer screening protocol. Sagittal and coronal reformats were performed. FINDINGS: Pulmonary nodules: A small calcified granuloma is seen in the superior segment of the right lower lob e. No suspicious pulmonary nodules are seen. No focal infiltrates are seen. Pleural space: No pneumothorax or pleural effusion are seen. A calcified pleural plaque is seen adjac ent to a remote right rib fracture. Heart: The heart is normal in size. Mediastinum: No hilar or mediastinal lymphadenopathy appreciated on this limited noncontrast examinat ion. Bones: No acute abnormality. There are remote right rib fractures which are unhealed. There are heale d left rib fractures. Hardware is seen in the cervical spine. Chest wall soft tissues: The patient has bilateral breast implants with calcified fibrous capsules. T here is a small amount of fluid surrounding the right breast implant within the fibrous capsule. Visualized subdiaphragmatic structures: Unremarkable. The patient is status post cholecystectomy. IMPRESSION: Lung RADS category 1-negative.
== END 2020-08-24 10:46 | disposition home or self-care (01) ==
LOC: BICCT 10:45
PROVIDERS: ATTEND Internal Medicine
DX: Z12.2 Encounter for screening for malignant neoplasm of respiratory organs (principal); Z87.891 Personal history of nicotine dependence
CPT/HCPCS: 71271

== ENCOUNTER 2020-12-03 12:04 | Outpatient (CLI) | payer MEDICARE ==
[2020-12-03 13:57] LABS: Anion Gap 12 mmol/L (10-20); BUN (Urea Nitrogen) 23 mg/dL (9.8-20.1); Calc. Creatinine Clearance 0 mL/min (70-130); Calcium 9.4 mg/dL (7.8-10.44); Carbon Dioxide 24 mmol/L (23-31); Chloride 103 mmol/L (98-107); Glucose 104 mg/dL (80-115); Potassium 4.2 mmol/L (3.5-5.1); Sodium 135 mmol/L (136-145)
[2020-12-03 20:45] LABS: SARS-CoV-2 PCR by NAA Not Detected (NotDetected)
== END 2020-12-03 12:05 | disposition home or self-care (01) ==
LOC: LABBT 12:04
PROVIDERS: ATTEND Otolaryngology Plastic Surgery within the Head & Neck
DX: Z01.818 Encounter for other preprocedural examination (principal); J32.9 Chronic sinusitis, unspecified; J34.3 Hypertrophy of nasal turbinates; Z20.822 Contact with and (suspected) exposure to COVID-19
CPT/HCPCS: 80048; 85014; 85018; 93005; U0003; U0005; 93010

== ENCOUNTER 2020-12-08 09:21 | Day surgery (SDC) | payer MEDICARE ==
[2020-12-07 11:08] VITALS: BMI 19.1
[2020-12-08] MEDS ORDERED: AFRIN NASAL MIST 15 ML BOT ONE ×2 (09:37→11:15)
[2020-12-08] MEDS ORDERED: Lidocaine 1% w/Epinephrine 1:100K 20 ML VIAL ONE (11:15)
[2020-12-08] MEDS ORDERED: Famotidine/PF 20 mg/2ml Vial ONE (11:24)
[2020-12-08] MEDS ORDERED: Fentanyl 100 MCG/2 ML VIAL ONE (11:24)
[2020-12-08] MEDS ORDERED: Midazolam HCl 2 mg/2 ml Vial ONE (11:30)
[2020-12-08] MEDS ORDERED: Ondansetron PF 4 MG/2 ML Vial ONE (11:31)
[2020-12-08] MEDS ORDERED: Lidocaine 1% PF 5 ML VIAL ONE (11:31)
[2020-12-08] MEDS ORDERED: PHENYLEPHRINE-NS 100 MCG/ML 10 ML SYRINGE ONE (11:31)
[2020-12-08] MEDS ORDERED: Metoclopramide HCl 10 MG/2 ML VIAL ONE (11:31)
[2020-12-08] MEDS ORDERED: Ketorolac Tromethamine 30 MG/ML VIAL ONE (11:31)
[2020-12-08] MEDS ORDERED: PROPOFOL 200 MG/20 ML VIAL ONE (11:31)
[2020-12-08] MEDS ORDERED: Dexamethasone 20 MG/5 ML VIAL ONE (11:31)
[2020-12-08] MEDS ORDERED: Naloxone HCl 0.4 mg/ml Vial ONE (11:31)
[2020-12-08] MEDS ORDERED: Promethazine HCl 25 MG/ML VIAL ONE (12:47)
[2020-12-08] MEDS ORDERED: hydrALAZINE 20 MG/ML VIAL ONE (12:52)
[2020-12-10 12:11] LABS: Fungus Stain Final report (.)
== END 2020-12-08 14:30 | disposition home or self-care (01) ==
LOC: SDC 09:21
PROVIDERS: ATTEND Otolaryngology Plastic Surgery within the Head & Neck
PROC: 099R8ZZ Drainage of Left Maxillary Sinus, Via Natural or Artificial Opening Endoscopic (ICD-10-PCS; principal; 2020-12-08)
PROC: 099Q8ZZ Drainage of Right Maxillary Sinus, Via Natural or Artificial Opening Endoscopic (ICD-10-PCS; 2020-12-08)
PROC: 09BT8ZZ Excision of Left Frontal Sinus, Via Natural or Artificial Opening Endoscopic (ICD-10-PCS; 2020-12-08)
PROC: 09BS8ZZ Excision of Right Frontal Sinus, Via Natural or Artificial Opening Endoscopic (ICD-10-PCS; 2020-12-08)
PROC: 09BL8ZZ Excision of Nasal Turbinate, Via Natural or Artificial Opening Endoscopic (ICD-10-PCS; 2020-12-08)
PROC: 09BV8ZZ Excision of Left Ethmoid Sinus, Via Natural or Artificial Opening Endoscopic (ICD-10-PCS; 2020-12-08)
PROC: 09BU8ZZ Excision of Right Ethmoid Sinus, Via Natural or Artificial Opening Endoscopic (ICD-10-PCS; 2020-12-08)
PROC: 09CX8ZZ Extirpation of Matter from Left Sphenoid Sinus, Via Natural or Artificial Opening Endoscopic (ICD-10-PCS; 2020-12-08)
PROC: 09CW8ZZ Extirpation of Matter from Right Sphenoid Sinus, Via Natural or Artificial Opening Endoscopic (ICD-10-PCS; 2020-12-08)
DX: J32.9 Chronic sinusitis, unspecified (principal); J34.3 Hypertrophy of nasal turbinates; J34.89 Other specified disorders of nose and nasal sinuses; K21.9 Gastro-esophageal reflux disease without esophagitis; Z79.51 Long term (current) use of inhaled steroids; Z79.82 Long term (current) use of aspirin; Z79.899 Other long term (current) drug therapy; Z87.891 Personal history of nicotine dependence
CPT/HCPCS: 87070; 87076; 87102; 87186; 87205; 87206; J0360; J1100; J1885; J2250; J2310; J2405; J2550; J2704; J2765; J3010; S0028

== ENCOUNTER 2021-04-16 07:17 | Emergency (ER) | payer OTHER, MEDICARE ==
[2021-04-16] MEDS ORDERED: Ketorolac Tromethamine 30 MG/ML VIAL ONE (07:57)
[2021-04-16] MEDS ORDERED: Boostrix 0.5 ML (Tdap) VIAL ONE (08:41)
== END 2021-04-16 09:15 | disposition home or self-care (01) ==
LOC: ERS 07:17
DX: T85.49XA Other mechanical complication of breast prosthesis and implant, initial encounter (principal); S20.211A Contusion of right front wall of thorax, initial encounter; S05.11XA Contusion of eyeball and orbital tissues, right eye, initial encounter; R00.1 Bradycardia, unspecified; I10 Essential (primary) hypertension; E78.5 Hyperlipidemia, unspecified; E78.00 Pure hypercholesterolemia, unspecified; J44.9 Chronic obstructive pulmonary disease, unspecified; F17.210 Nicotine dependence, cigarettes, uncomplicated; W01.10XA Fall on same level from slipping, tripping and stumbling with subsequent striking against unspecified object, initial encounter; Z79.899 Other long term (current) drug therapy; Z23 Encounter for immunization
CPT/HCPCS: 71250; 90471; 90715; 93005; 96372; J1885

== ENCOUNTER 2021-07-13 09:27 | Outpatient (CLI) | payer MEDICARE ==
[2021-07-13 21:30] LABS: SARS-CoV-2 PCR by NAA Not Detected (NotDetected)
== END 2021-07-13 09:28 | disposition home or self-care (01) ==
LOC: LABBT 09:27
PROVIDERS: ATTEND Plastic Surgery
DX: Z01.818 Encounter for other preprocedural examination (principal); Z20.822 Contact with and (suspected) exposure to COVID-19
CPT/HCPCS: 93005; U0003; U0005; 93010

== ENCOUNTER 2021-07-18 06:34 | Day surgery (SDC) | payer MEDICARE ==
[2021-07-14 11:00] VITALS: BMI 18.3
[2021-07-18] MEDS ORDERED: EPINEPHrine 1 MG/ML AMP ONE (06:57)
[2021-07-18] MEDS ORDERED: Bupivacaine 0.25% HCL 30 ML VIAL ONE ×2 (06:57→09:08)
[2021-07-18] MEDS ORDERED: Heparin 5,000 UNITS/ML VIAL ONE (08:46)
[2021-07-18] MEDS ORDERED: Midazolam HCl 2 mg/2 ml Vial ONE (08:46)
[2021-07-18] MEDS ORDERED: Gentamicin 80 MG/2 ML VIAL ONE (08:46)
[2021-07-18] MEDS ORDERED: Famotidine/PF 20 mg/2ml Vial ONE (09:06)
[2021-07-18] MEDS ORDERED: Fentanyl 100 MCG/2 ML VIAL ONE (09:06)
[2021-07-18] MEDS ORDERED: ceFAZolin 2 GM/DEX 5% 100 ML BAG ONE (09:10)
[2021-07-18] MEDS ORDERED: ePHEDrine 50 MG/ML VIAL ONE (09:20)
[2021-07-18] MEDS ORDERED: Dexamethasone 20 MG/5 ML VIAL ONE (09:20)
[2021-07-18] MEDS ORDERED: PHENYLEPHRINE-NS 100 MCG/ML 10 ML SYRINGE ONE (09:20)
[2021-07-18] MEDS ORDERED: Ondansetron PF 4 MG/2 ML Vial ONE (09:20)
[2021-07-18] MEDS ORDERED: Lidocaine 1% PF 5 ML VIAL ONE (09:20)
[2021-07-18] MEDS ORDERED: Metoclopramide HCl 10 MG/2 ML VIAL ONE (09:20)
[2021-07-18] MEDS ORDERED: Ketorolac Tromethamine 30 MG/ML VIAL ONE (09:20)
[2021-07-18] MEDS ORDERED: PROPOFOL 200 MG/20 ML VIAL ONE (09:20)
[2021-07-18] MEDS ORDERED: Tranexamic Acid 1,000 MG/10 ML VIAL ONE (09:47)
[2021-07-18] MEDS ORDERED: Neomycin-Polymyxin 1 ML AMP ONE (10:02)
== END 2021-07-18 13:27 | disposition home or self-care (01) ==
LOC: SDC 06:34
PROVIDERS: ATTEND Plastic Surgery
PROC: 0HPU0JZ Removal of Synthetic Substitute from Left Breast, Open Approach (ICD-10-PCS; principal; 2021-07-18)
PROC: 0HPT0JZ Removal of Synthetic Substitute from Right Breast, Open Approach (ICD-10-PCS; 2021-07-18)
DX: T85.44XA Capsular contracture of breast implant, initial encounter (principal); T85.43XA Leakage of breast prosthesis and implant, initial encounter; N64.81 Ptosis of breast; K21.9 Gastro-esophageal reflux disease without esophagitis; F17.210 Nicotine dependence, cigarettes, uncomplicated; I10 Essential (primary) hypertension; J44.9 Chronic obstructive pulmonary disease, unspecified; E07.9 Disorder of thyroid, unspecified; Z79.899 Other long term (current) drug therapy; Y81.8 Miscellaneous general- and plastic-surgery devices associated with adverse incidents, not elsewhere classified
CPT/HCPCS: 88304; J0171; J1100; J1580; J1644; J1885; J2250; J2405; J2704; J2765; J3010; J3370; J3490; S0020; S0028

== ENCOUNTER 2022-03-31 12:17 | Emergency (ER) | payer MEDICARE ==
[2022-03-31 13:34] LABS: #Basophils 0.1 thou/uL (0.0-0.2); #Eosinphils 0.1 thou/uL (0.0-0.7); #Lymphocytes 2.4 thou/uL (1.20-3.40); #Monocytes 0.8 thou/uL (0.11-0.59); #Neutrophils 5.4 thou/uL (1.40-6.50); %Eosinophils 0.7 % (0.0-10.0); %Lymphocytes 26.9 % (21.0-51.0); %Monocytes 9.5 % (0.0-10.0); Hemoglobin 12.4 g/dL (12.0-16.0); Mean Corpuscular HGB CONC 31.8 g/dL (32.0-36.0); Mean Corpuscular Hemoglobin 31.6 pg (27.0-31.0); Mean Corpuscular Volume 99.2 fL (78.0-98.0); Platelet Count 467 thou/uL (130-400); RBC Distribution Width 11.4 % (11.5-14.5); Red Blood Cell (RBC) Count 3.93 mill/uL (4.20-5.40); White Blood Cell (WBC) Count 8.8 thou/uL (4.8-10.8)
[2022-03-31 14:01] LABS: ALT (SGPT) 33 U/L (8-55); AST (SGOT) 23 U/L (5-34); Albumin 4.7 g/dL (3.4-4.8); Alkaline Phosphatase 62 U/L (40-110); Anion Gap 11 mmol/L (10-20); BUN (Urea Nitrogen) 19 mg/dL (9.8-20.1); Bilirubin, Total 0.5 mg/dL (0.2-1.2); Calc. Creatinine Clearance 0 mL/min (70-130); Calcium 9.3 mg/dL (7.8-10.44); Carbon Dioxide 22 mmol/L (23-31); Chloride 105 mmol/L (98-107); Estimated GFR 65; Globulin 2.5 g/dL (2.4-3.5); Glucose 73 mg/dL (80-115); Potassium 3.9 mmol/L (3.5-5.1); Protein, Total 7.2 g/dL (5.8-8.1); Sodium 134 mmol/L (136-145)
[2022-03-31] MEDS ORDERED: Ketorolac Tromethamine 30 MG/ML VIAL ONE (15:29)
[2022-03-31] MEDS ORDERED: Cyclobenzaprine 10 MG TAB ONE (15:30)
== END 2022-03-31 16:21 | disposition home or self-care (01) ==
LOC: ERS 12:17
DX: K85.90 Acute pancreatitis without necrosis or infection, unspecified (principal); M62.830 Muscle spasm of back; I10 Essential (primary) hypertension; E78.00 Pure hypercholesterolemia, unspecified; J44.9 Chronic obstructive pulmonary disease, unspecified; F17.210 Nicotine dependence, cigarettes, uncomplicated
CPT/HCPCS: 36415; 71045; 80053; 83690; 84484; 85025; 93005; J1885

== ENCOUNTER 2025-07-01 05:50 | Emergency (ER) | payer MEDICARE, OTHER ==
[2025-07-01] MEDS ORDERED: HYDROcodone/Acetaminophen 5/325 mg Tablet ONE (06:32)
[2025-07-01 07:10] LABS: #Basophils 0.05 10x3/uL (0.0-0.2); #Eosinophils 0.27 10x3/uL (0.0-0.7); #Monocytes 0.86 10x3/uL (0.11-0.59); #Neutrophils 4.91 10x3/uL (1.40-6.50); %Basophils 0.6 % (0.0-1.0); %Eosinophils 3.5 % (0.0-10.0); %Lymphocytes 21.7 % (21.0-51.0); %Monocytes 11.0 % (0.0-10.0); %Neutrophils 63.1 % (42.0-75.0); Hematocrit 37.7 % (36.0-47.0); Hemoglobin 12.1 g/dL (12.0-16.0); Mean Corpuscular Hemoglobin 29.1 pg (27.0-31.0); Mean Corpuscular Volume 90.6 fL (78.0-98.0); Platelet Count 283 10x3/uL (130-400); Red Blood Cell (RBC) Count 4.16 mill/uL (4.20-5.40); White Blood Cell (WBC) Count 7.79 10x3/uL (4.8-10.8)
[2025-07-01 07:28] LABS: ALT (SGPT) 101 U/L (Less than 34); AST (SGOT) 66 U/L (11-34); Albumin 3.4 g/dL (3.1-4.5); Alkaline Phosphatase 96 U/L (40-110); Anion Gap 12 mmol/L (10-20); BUN (Urea Nitrogen) 20 mg/dL (9.8-20.1); Bilirubin, Total 0.2 mg/dL (0.3-1.2); Calc. Creatinine Clearance 0 mL/min (70-130); Calcium 8.7 mg/dL (7.8-10.44); Carbon Dioxide 25 mmol/L (23-31); Chloride 109 mmol/L (98-107); Globulin 2.9 g/dL (2.4-3.5); Glucose 103 mg/dL (80-115); Potassium 4.0 mmol/L (3.5-5.1); Sodium 142 mmol/L (136-145)
== END 2025-07-01 08:47 | disposition home or self-care (01) ==
LOC: ERS 05:50
DX: S20.211A Contusion of right front wall of thorax, initial encounter (principal); W19.XXXA Unspecified fall, initial encounter
CPT/HCPCS: 36415; 70450; 71260; 80053; 85025